=== PATIENT | female | born 1970 | race Caucasian/White ===

== ENCOUNTER 2022-09-25 18:30 | Emergency (ER) | payer MEDICAID ==
[~2022-09-25] VITALS: Ht 167.6 cm; Wt 104.0 kg
[2022-09-25 22:47] LABS: BASOPHILS % 0.6 % (0.0-2.0); EOSINOPHILS % 2.7 % (0.0-5.0); HEMATOCRIT. 38.7 % (36.0-48.0); HEMOGLOBIN. 12.6 g/dL (12.0-16.0); LYMPHOCYTES % 20.1 % (20.0-50.0); MEAN CORPUSCULAR VOLUME 82.5 fL (81.0-99.0); MEAN PLATELET VOLUME 6.9 fl (7.4-10.4); MONOCYTES % 5.8 % (2.0-8.0); NEUTROPHILS % 70.8 % (40.0-76.0); PLATELET 341 x1000/uL (130-400); RED BLOOD CELL COUNT 4.69 mill/uL (4.2-5.4); RED CELL DISTRIBUTION WIDTH 14.5 % (11.6-14.6)
[2022-09-26 01:37] VITALS: BP 156/79
[2022-09-26 04:16] LABS: CHLORIDE 104 mEq/L (98-107)
== END 2022-09-25 21:09 | disposition home or self-care (01) ==
LOC: ER 18:30
DX: I10 Essential (primary) hypertension (principal); R07.89 Other chest pain
CPT/HCPCS: 36415; 71045; 80053; 83880; 84484; 85025; 99284